=== PATIENT | female | born 1990 | race Caucasian/White ===

== ENCOUNTER 2018-06-19 01:35 | Emergency (ER) | payer OTHER ==
[2018-06-19 01:58] LABS: PLATELET COUNT 306 10^3/uL (150-400)
[2018-06-19] MEDS ORDERED: TDAP ADULT 0.5 ML INJ (BOOSTRIX) IM ONE (01:58)
--- NOTE | 2018-06-19 02:36 | EDPHY ---
H & P Stated Complaint: M1-SI Time Seen by Provider: 06/19/18 01:36 HPI/ROS: HPI The patient presents with suicidal ideation which she has had intermittently for the last 1 week. Today, she cut her left wrist with a scissors. She has prior history of cutting behavior. She has a history of depression and a previous psychiatric admission at age of 15. She initiated medication in March of this year and is currently tapering Prozac and starting Wellbutrin. She was in contact with the crisis center yesterday, also feeling suicidal. She says that she has been eating and sleeping well since starting Wellbutrin but her mood has been bad. She does not drink alcohol frequently, however when she does she drinks quite heavily. She has been drinking alcohol tonight. REVIEW OF SYSTEMS 10 systems were reviewed and negative with the exception of the elements mentioned in the history of present illness. PMHx: Depression, on medication Soc Hx: Alcohol abuse, works as a therapist PHYSICAL General Appearance: Alert, no distress Eyes: Pupils equal and round no pallor or injection ENT, Mouth: Mucous membranes moist Respiratory: There are no retractions, lungs are clear to auscultation Cardiovascular: Regular rate and rhythm Gastrointestinal: Abdomen is soft and non-tender, no masses, bowel sounds normal Neurological: A&O, moves all extremities Skin: Warm and dry, left forearm with transverse laceration which is superficial, there are multiple scars from previous self cutting Musculoskeletal: Neck is supple non tender Extremities: symmetrical, full range of motion Psychiatric: Patient is oriented X 3, there is no agitation, flat affect Source: Patient Exam Limitations: Intoxication - Personal History LMP (Females 10-55): 22-28 Days Ago Current Tetanus Diphtheria and Acellular Pertussis (TDAP): Unsure - Medical/Surgical History Hx Asthma: No Hx Chronic Respiratory Disease: No Hx Diabetes: No Hx Cardiac Disease: No Hx Renal Disease: No Hx Cirrhosis: No Hx Alcoholism: No Hx HIV/AIDS: No Hx Splenectomy or Spleen Trauma: No Other PMH: anxiety, depression, PTSD - Social History Smoking Status: Current every day smoker Constitutional: Initial Vital Signs Temperature (C) 36.6 C 06/19/18 01:44 Heart Rate 84 06/19/18 01:44 Respiratory Rate 16 06/19/18 01:44 Blood Pressure 137/96 H 06/19/18 01:44 O2 Sat (%) 96 06/19/18 01:44 O2 Delivery Mode Room Air Allergies/Adverse Reactions: No Known Allergies Allergy (Unverified 06/19/18 01:48) Home Medications: Medication Instructions Recorded Gabapentin 06/19/18 Prozac 10 MG (*) 06/19/18 Wellbutrin Sr 06/19/18 Medical Decision Making Differential Diagnosis: 28-year-old female presents with suicidal ideation. She has a history of depression. She has been drinking alcohol tonight. She was placed on an M1 by police. Plan for update of her tetanus vaccine, basic labs. I will maintain the M1 hold. Given that she is intoxicated we will have the mental health team see her in the morning when she is clinically sober. 6:40 a.m.- Patient is now medically clear. Clinically sober. At 7:00 a.m., case will be signed out to the oncoming provider Dr. Guerra. - Data Points Laboratory Results: Laboratory Results 06/19/18 01:50 06/19/18 01:50 06/19/18 06/19/18 06/19/18 02:30 01:50 01:50 WBC RBC Hgb Hct MCV MCH MCHC RDW Plt Count MPV Neut % (Auto) Lymph % (Auto) [place] % (Auto) Eos % (Auto) Baso % (Auto) Nucleat RBC Rel Count Absolute Neuts (auto) Absolute Lymphs (auto) Absolute Monos (auto) Absolute Eos (auto) Absolute Basos (auto) Absolute Nucleated RBC Immature Gran % Immature Gran # Sodium 144 mEq/L mEq/L (135-145) Potassium 3.8 mEq/L mEq/L (3.5-5.2) Chloride 109 mEq/L mEq/L (97-110) Carbon Dioxide 20 mEq/l L mEq/l (22-31) Anion Gap 15 mEq/L H mEq/L (6-14) BUN 10 mg/dL mg/dL (7-23) Creatinine 0.8 mg/dL mg/dL (0.6-1.0) Estimated GFR > 60 Glucose 101 mg/dL H mg/dL (70-100) Calcium 9.2 mg/dL mg/dL (8.5-10.4) Total Bilirubin 0.3 mg/dL mg/dL (0.1-1.4) AST 24 IU/L IU/L (14-46) ALT 25 IU/L IU/L (9-52) Alkaline Phosphatase 52 IU/L IU/L (38-126) Total Protein 7.2 g/dL g/dL (6.3-8.2) Albumin 4.5 g/dL g/dL (3.5-5.0) Beta HCG, Qual NEGATIVE Urine Opiates Screen NEGATIVE (NEGATIVE) Urine Barbiturates NEGATIVE (NEGATIVE) Ur Phencyclidine Scrn NEGATIVE (NEGATIVE) Ur Amphetamine Screen NEGATIVE (NEGATIVE) U Benzodiazepines Scrn NEGATIVE (NEGATIVE) Urine Cocaine Screen NEGATIVE (NEGATIVE) U Marijuana (THC) Screen NEGATIVE (NEGATIVE) Ethyl Alcohol 233 mg/dL H mg/dL (0-10) 06/19/18 01:50 WBC 10.12 10^3/uL H 10^3/uL (3.80-9.50) RBC 4.76 10^6/uL 10^6/uL (4.18-5.33) Hgb 13.7 g/dL g/dL (12.6-16.3) Hct 40.6 % % (38.0-47.0) MCV 85.3 fL fL (81.5-99.8) MCH 28.8 pg pg (27.9-34.1) MCHC 33.7 g/dL g/dL (32.4-36.7) RDW 14.0 % % (11.5-15.2) Plt Count 306 10^3/uL 10^3/uL (150-400) MPV 8.9 fL fL (8.7-11.7) Neut % (Auto) 70.7 % % (39.3-74.2) Lymph % (Auto) 22.4 % % (15.0-45.0) [place] % (Auto) 5.3 % % (4.5-13.0) Eos % (Auto) 0.7 % % (0.6-7.6) Baso % (Auto) 0.7 % % (0.3-1.7) Nucleat RBC Rel Count 0.0 % % (0.0-0.2) Absolute Neuts (auto) 7.15 10^3/uL H 10^3/uL (1.70-6.50) Absolute Lymphs (auto) 2.27 10^3/uL 10^3/uL (1.00-3.00) Absolute Monos (auto) 0.54 10^3/uL 10^3/uL (0.30-0.80) Absolute Eos (auto) 0.07 10^3/uL 10^3/uL (0.03-0.40) Absolute Basos (auto) 0.07 10^3/uL 10^3/uL (0.02-0.10) Absolute Nucleated RBC 0.00 10^3/uL 10^3/uL (0-0.01) Immature Gran % 0.2 % % (0.0-1.1) Immature Gran # 0.02 10^3/uL 10^3/uL (0.00-0.10) Sodium Potassium Chloride Carbon Dioxide Anion Gap BUN Creatinine Estimated GFR Glucose Calcium Total Bilirubin AST ALT Alkaline Phosphatase Total Protein Albumin Beta HCG, Qual Urine Opiates Screen Urine Barbiturates Ur Phencyclidine Scrn Ur Amphetamine Screen U Benzodiazepines Scrn Urine Cocaine Screen U Marijuana (THC) Screen Ethyl Alcohol Medications Given: Discontinued Medications Diphtheria/Tetanus/Acell Pertussis (Boostrix) 0.5 ml IM .ONCE ONE Stop: 06/19/18 01:59 Last Admin: 06/19/18 02:27 Dose: 0.5 ml Departure - Departure Clinical Impression: Suicidal ideation Condition: Fair
[2018-06-19 08:27] VITALS: BP 123/74
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
--- NOTE | 2018-06-19 12:20 | ASMTTCLDSP ---
TLC Discharge Disposition Disposition: Answers: Transfer Disposition Notes: Notes: Dr. Flores, [facility], authorized inpatient treatment; OLIVE is authorization code (policy # [id number]). Discharge Concerns/Recommendations: Notes: In consultation with [facility] ED physician, Arline Tucker MD and [place] on-call Dr. Flores, both concurred that pt appears to meet 27-65 criteria requiring psychiatric hospitalization as the patient appears to be an imminent risk of harm to self due to a mental illness condition. The patient was read the Patient Rights and Responsibilities Statement (placed on chart). Was patient given the Answers: Not applicable Inpatient Behavioral Health Prohibited Belongings List while in the ED? Type of Hold: Answers: M1/72-hour Hold Hold initiated by: Answers: Police For Transfers, Accepting [facility] Facility: For Transfers, Accepting Inge Baeza MD Psychiatrist: For Transfers, Reason [facility] Patient is Being Transferred: Date Signed: 06/19/2018 10:42 AM Electronically Signed By:Rosalie Armenta
== END 2018-06-19 14:10 ==
DX: R45.851 Suicidal ideations (principal); X78.8XXA Intentional self-harm by other sharp object, initial encounter; F10.920 Alcohol use, unspecified with intoxication, uncomplicated; F32.9 Major depressive disorder, single episode, unspecified; F43.10 Post-traumatic stress disorder, unspecified; F41.9 Anxiety disorder, unspecified; Z23 Encounter for immunization; Z79.899 Other long term (current) drug therapy
CPT/HCPCS: 80305; G0480